=== PATIENT | male | born 1955 | race African-American/Black ===

== ENCOUNTER 2018-10-31 17:52 | Emergency (ER) | payer OTHER ==
[~2018-10-31] VITALS: Ht 170.2 cm; Wt 72.6 kg
[2018-10-31 18:12] LABS: HEMATOCRIT 42.3 % (42.0-52.0); HEMOGLOBIN 13.8 gm/dL (14.0-18.0); MCH 28.6 pg (26.0-34.0); MCHC 32.7 g/dL (28.0-37.0); MCV 87.5 fL (80.0-100.0); PLATELET COUNT 256 thou/uL (150-400); RBC 4.84 mil/uL (4.50-6.00); RDW 15.1 % (10.5-14.5); WBC 14.5 thou/uL (4.0-11.0)
[2018-10-31 18:15] LABS: CALCIUM 8.6 mg/dL (8.5-10.1); CREATININE 1.5 mg/dL (0.7-1.3); POTASSIUM 4.8 mmol/L (3.5-5.1)
[2018-10-31 18:21] LABS: ALBUMIN 3.7 g/dL (3.4-5.0); TOTAL BILIRUBIN 0.2 mg/dL (<0.1-1.0); TOTAL PROTEIN 7.3 g/dL (6.4-8.2)
[2018-10-31 18:24] LABS: AMP/METHAMP Negative (Negative); BARBITURATES Negative (Negative); BENZODIAZEPINES POSITIVE (Negative); COCAINE POSITIVE (Negative); METHADONE Negative (Negative); OPIATES Negative (Negative); PCP Negative (Negative)
[2018-10-31 18:44] LABS: ABSOLUTE NEUTROPHILS 7.8 thou/uL (1.4-8.2)
[2018-10-31 22:55] VITALS: BP 118/84
--- NOTE | 2018-11-01 12:01 | EKG ---
[place] [address] [facility] [place] [address] ELECTROCARDIOGRAM REPORT Name: STEPAN DANIELS [id number] Admission: 10/31/18 Attend Phys: Discharge: 10/31/18 Date of : 59 Report #: [id number] THIS REPORT FOR: //name// [facility] ED Test Date: 2018-10-31 Test Time: 17:59:03 Pat Name: STEPAN DANIELS Department: Room: Gender: M Clinical Sociologist: : 1955 Requested By: Marta Prabhakar Order Number: [id number] MD: Isra Del Toro Measurements Intervals [place] Rate: 90 P: 74 DC: 132 QRS: 43 QRSD: 78 T: 45 QT: 410 QTc: 502 Interpretive Statements Sinus rhythm Nonspecific ST and T wave abnormality Prolonged QT interval Baseline wander in lead(s) III,aVF No previous ECG available for comparison Electronically Signed On 11-01-2018 12:00:54 PSYCHIATRIC TECHNICIAN ASSISTANT by Isra Del Toro [email or web address] <ELECTRONICALLY SIGNED> By: Isra Del Toro MD, [facility] 11/01/[address] [facility] [place] 175 175 Isra Del Toro MD, FACC /EPI
== END 2018-10-31 23:00 | disposition home or self-care (01) ==
LOC: ER 17:52
PROVIDERS: Student in an Organized Health Care Education/Training Program
DX: F14.90 Cocaine use, unspecified, uncomplicated (principal)